=== PATIENT | female | born 1995 | race African-American/Black ===

== ENCOUNTER 2017-05-09 07:50 | Day surgery (SDC) | payer OTHER ==
[~2017-05-09] VITALS: Ht 157.5 cm; Wt 81.7 kg
[~2017-05-09 07:50] MED LIST: ADVIL200 M1 PO; FLONASE ALLERG9.9 ML
--- NOTE | 2017-05-09 10:52 | NUR ---
05/09/17 1052 Cristi Kay [address] PLACED BY ANESTHESIA AT BEDSIDE
--- NOTE | 2017-05-09 12:59 | NUR ---
PT CALL LIGHT ON, THIS RN RESPONDED. PT REQEUSTS TISSUES AND A BAG "TO SPIT IN." EMISIS BAG PROVIDED. PT REQEUSTS HER PHONE AND THE LIGHTS OFF SO SHE CAN NAP. REQUESTS PROVIDED. PT HAS NO OTHER REQUSTS AT THIS TIME. BED RAILS UP. CALL LIGHT WITHIN REACH.
--- NOTE | 2017-05-09 14:25 | NUR ---
1140: PATIENT BACK IN DAY SURGERY ROOM FROM PACU. C/O PAIN 12/14. DECLINES SOMETHING TO EAT AT THIS TIME. GIVEN ICE WATER AND HOT CHOCOLATE PER PATIENT REQUEST. IV SITE WNL. NASAL PACKING IN PLACE. HOB ELEVATED. SCDs ON. CALL LIGHT WITHIN REACH.
[2017-05-09] MEDS ORDERED: NORCO 5-325 TA1 EACH PO (14:59)
--- NOTE | 2017-05-09 15:39 | NUR ---
1520: PATIENT ASSISTED OOB AND TO BATHROOM. GAIT STEADY. VOID WITHOUT DIFFICULTY. GAIT STEADY BACK TO ROOM. IV DC'D WNL. DRESSING APPLIED. DISCHARGE INSTRUCTIONS GIVEN TO PATIENT.
--- NOTE | 2017-05-09 16:08 | NUR ---
1550: PATIENT DISCHARGED TO HOME WITH DAD VIA WHEELCHAIR.
--- NOTE | 2017-06-06 15:11 | OR ---
[facility] [address], [place] [address] Signed DATE OF PROCEDURE: 05/09/17 PREOPERATIVE DIAGNOSES Septal deformity, inferior turbinate hypertrophy, and chronic ethmoid sinusitis. POSTOPERATIVE DIAGNOSES Septal deformity, inferior turbinate hypertrophy, and chronic ethmoid sinusitis. PROCEDURE Bilateral intranasal ethmoidectomy, septoplasty, cautery of bilateral inferior turbinates. SURGEON: Gopi Avila M.D. ANESTHESIA: General LMA, Lisa Mccallum CRNA. PREOP HISTORY Shakira is a 21-year-old young lady with chronic sinus infections, nasal obstruction due to septal deformity and inferior turbinate hypertrophy. CAT scan of her sinuses has shown bilateral ethmoid maxillary sinus opacification and she is taken to the operating for the above-mentioned procedures. OPERATIVE PROCEDURE AND FINDINGS After informed consent, the patient was taken to the operating room, placed in supine position where general LMA anesthesia was induced. The patient received preoperative intranasal oxymetazoline, intravenous Clindamycin (due to a Cephalosporin allergy). Preop CT was viewed throughout. Headlight speculum exam of the nasal cavity showed septal deformity on the left side, partially obstructing visualization of the middle turbinate and middle meatus. Septal deformity was corrected with excising septal bone cartilage with Bala and the septum deformity was corrected in this manner allowing access to the middle meatus. Left ethmoid sinuses were approached with a speculum and headlight. The middle turbinate was medialized. Ethmoid bulla was taken down with the Bala. Anterior ethmoid air cells were opened. There was mucoid polypoid mucosa present. No purulence. After all of the affected sinuses were open, a middle meatal antrostomy was made with a curved ring curette, widened with the Bala. Minimal bleeding. A Garcia Kofi coated with Neosporin was placed in the middle meatus. Specimen was sent to pathology. Right ethmoid sinuses and maxillary sinuses were treated in the same manner. Packing was placed. Inferior turbinates were then cauterized with a long handle needle point cautery starting on the left, multiple transmucosal passes starting anteriorly on the medial and Electronically Signed By: GOPI AVILA MD 06/06/17 1511 PATIENT NAME: NJ DIEZ OPERATIVE REPORT DATE OF : [birth year] PHYSICIAN: GOPI AVILA MD REPORT #: [id number] REPORT IS CONFIDENTIAL AND NOT TO BE RELEASED WITHOUT AUTHORIZATION [facility] [address], [place] [address] Signed inferior surface of the inferior turbinate extending all the way back posteriorly. Excellent shrinkage in the size of the turbinate was obtained. Trimmed Merocel pack was placed coated with Neosporin. Same procedure on the right inferior turbinate. Merocel pack placed, tied anteriorly over a pad. Pharynx was suctioned clear of blood and secretions. Hemostasis was verified. The patient was then awakened, extubated, transported to recovery room in good condition. No complications. Blood loss minimal. Specimen to pathology, sinus contents left and right separately. Packing, 2 pieces of Merocel each nostril. No drains. No complications. Gopi Avila MD GC/Modl /[id number] cc: Darell Barrett MD Electronically Signed By: GOPI AVILA MD 06/06/17 1511 PATIENT NAME: GREER DIEZINDERHolland SIMON OPERATIVE REPORT DATE OF : [birth year] PHYSICIAN: GOPI AVILA MD REPORT #: [id number] REPORT IS CONFIDENTIAL AND NOT TO BE RELEASED WITHOUT AUTHORIZATION
== END 2017-05-09 15:50 | disposition home or self-care (01) ==
LOC: OPS 07:50 → DS 07:50 → OPS 10:00
PROVIDERS: Otolaryngology
PROC: 09BU4ZZ Excision of Right Ethmoid Sinus, Percutaneous Endoscopic Approach (ICD-10-PCS; 2017-05-09)
PROC: 09SM0ZZ Reposition Nasal Septum, Open Approach (ICD-10-PCS; 2017-05-09)
PROC: 095L0ZZ Destruction of Nasal Turbinate, Open Approach (ICD-10-PCS; 2017-05-09)
PROC: 09BV4ZZ Excision of Left Ethmoid Sinus, Percutaneous Endoscopic Approach (ICD-10-PCS; principal; 2017-05-09 10:00)
DX: J34.2 Deviated nasal septum (principal); J34.3 Hypertrophy of nasal turbinates; J32.2 Chronic ethmoidal sinusitis; Z88.8 Allergy status to other drugs, medicaments and biological substances
CPT/HCPCS: 00160; J1100; J1170; J2250; J2405; J2704; J3010; J7120

== ENCOUNTER 2021-07-17 03:34 | Emergency (ER) | payer SELFPAY ==
[~2021-07-17] VITALS: Ht 157.5 cm; Wt 86.2 kg
[~2021-07-17 03:34] MED LIST changes: +NORCO 5-325 TA1 EACH PO
[2021-07-17] MEDS ORDERED: SERTRALINE HCL100 MG PO (03:47)
--- NOTE | 2021-07-17 20:40 | EKG ---
[facility] [address] [facility] [place], [place] [address] Signed Normal sinus rhythm Normal ECG No previous ECGs available Confirmed by JETT TOWNSEND DO ([id number]) on 07/17/2021 8:40:11 PM Electronically Signed By: JETT TOWNSEND DO 07/17/212039 PATIENT NAME: NJ SUMMERS Electrocardiogram DATE OF : [birth year] PHYSICIAN: JETT TOWNSEND DO REPORT #: [id number] REPORT IS CONFIDENTIAL AND NOT TO BE RELEASED WITHOUT AUTHORIZATION
--- NOTE | 2021-07-17 20:45 | EKG ---
[facility] [address] [facility] [place], [place] [address] Signed Sinus tachycardia Rightward axis Borderline ECG Confirmed by JETT TOWNSEND DO ([id number]) on 07/17/2021 8:45:15 PM Electronically Signed By: JETT TOWNSEND DO 07/17/212044 PATIENT NAME: NJ SUMMERS Electrocardiogram DATE OF : [birth year] PHYSICIAN: JETT TOWNSEND DO REPORT #: [id number] REPORT IS CONFIDENTIAL AND NOT TO BE RELEASED WITHOUT AUTHORIZATION
== END 2021-07-17 08:43 | disposition home or self-care (01) ==
LOC: ED 03:34
DX: T43.221A Poisoning by selective serotonin reuptake inhibitors, accidental (unintentional), initial encounter (principal); Z88.1 Allergy status to other antibiotic agents; Z79.899 Other long term (current) drug therapy
CPT/HCPCS: 80053; 81001; 83735; 84443; 84703; 85025; 93005; 93010; 96374; 99285-25; G0480; J2405

== ENCOUNTER 2025-06-19 14:48 | Inpatient (IN) | payer OTHER ==
[~2025-06-19] VITALS: Ht 157.5 cm; Wt 82.6 kg
[~2025-06-19 14:48] MED LIST changes: +REGLAN10 MG PO; +SERTRALINE HCL100 MG PO
[2025-07-02] MEDS ORDERED: LACTATED RINGER'S 1,000 ML IV PRN (05:30)
[2025-07-02 06:01] LABS: MCH 28.4 PG (25.6-32.2); MCHC 32.7 g/dL (32.2-35.5); MCV 86.9 fL (79.4-94.8); RBC 4.19 M/uL (3.93-5.22)
[2025-07-02 06:41] LABS: ABO O; ANTIBODY SCREEN NEGATIVE; RH POSITIVE
[2025-07-02 06:55] VITALS: BP 109/56
[2025-07-02] MEDS ORDERED: CEFAZOLIN SODIUM 2 GM in SODIUM CHLORIDE 0.9% 100 ML IV SCH (07:00)
[2025-07-02] MEDS ORDERED: LIDOCAINE HCL 2% 5 ML SDV ONE (07:15)
[2025-07-02] MEDS ORDERED: BUPIVACAINE 0.75% IN DEXTROSE 2 ML AMP ONE (07:15)
[2025-07-02] MEDS ORDERED: fentaNYL citrate 100 MCG/2 ML VIAL ONE (07:17)
[2025-07-02] MEDS ORDERED: DEXAMETHASONE SOD PHOS 4 MG/ML VIAL ONE ×2 (07:20→08:47)
[2025-07-02] MEDS ORDERED: KETOROLAC TROMETHAMINE 30 MG/ML VIAL ONE (07:20)
[2025-07-02] MEDS ORDERED: NALOXONE HCL 0.4 MG SYR IV PRN ×2 (07:30)
[2025-07-02] MEDS ORDERED: MORPHINE SULFATE 4 MG/ML VIAL IV PRN (07:30)
[2025-07-02] MEDS ORDERED: HYDROmorphone HCL 1 MG/ML SYR IV PRN (07:30)
[2025-07-02] MEDS ORDERED: IBLOOD GLUCOSE TEST STRIP 1 EA TEST VI PRN (07:30)
[2025-07-02] MEDS ORDERED: KETOROLAC TROMETHAMINE 30 MG/ML VIAL IV PRN (07:30)
[2025-07-02] MEDS ORDERED: fentaNYL citrate 50 MCG/ML SDV IV PRN (07:30)
[2025-07-02] MEDS ORDERED: OXYTOCIN/0.9 % SODIUM CHLORIDE 500 ML IV ONE (07:31)
[2025-07-02] MEDS ORDERED: ACETAMINOPHEN 1,000 MG/100 ML VIAL ONE (08:20)
[2025-07-02 08:40] LABS: AMPHETAMINES, URINE NEGATIVE (NEGATIVE); BARBITURATES, URINE NEGATIVE (NEGATIVE); BENZODIAZEPINE, URINE NEGATIVE (NEGATIVE); CANNABINOID, URINE POSITIVE (NEGATIVE); COCAINE, URINE NEGATIVE (NEGATIVE); ECSTASY, URINE NEGATIVE (NEGATIVE); FENTANYL, URINE NEGATIVE (NEGATIVE); METHADONE, URINE NEGATIVE (NEGATIVE); OPIATES, URINE NEGATIVE (NEGATIVE); OXYCODONE, URINE NEGATIVE (NEGATIVE); PHENCYCLIDINE, URINE NEGATIVE (NEGATIVE)
[2025-07-02] MEDS ORDERED: SODIUM CHLORIDE 0.9% 60 ML IV ONE (08:45)
[2025-07-02] MEDS ORDERED: Ropivacaine HCl 0.5% 30 ML VIAL ONE (08:45)
--- NOTE | 2025-07-02 09:40 | NUR ---
07/02/25 0940 Ciara Ibarra 0931-PATIENT ARRIVED TO [facility] ROOM 103 FOR RECOVERY. PATIENT AWAKE DENIES PAIN OR NAUSEA. SPINAL AT T10. RA 98% RR EVEN. SR HR 60-70'S. FUNDUS FIRM AT UMBILICUS LIGHT RUBRA DRAINAGE TO REED PAD. GOMEZ CATHETER DRAINING YELLOW URINE. IV TO LEFT HAND INFUSING LR WITH PITOCIN CDI. DAD AT BEDSIDE HOLDING BABY, 0935-HOB SLIGHTLY ELEVATED TO FEED BABY TO BREAST. 0940-PATIENT FEEDING BABY TO BREAST DENIES PAIN OR NAUSEA. RA 98% RR EVEN
[2025-07-02 09:58] VITALS: BP 109/61
[2025-07-02] MEDS ORDERED: PROMETHAZINE HCL 25 MG TAB PO PRN (12:45)
[2025-07-02] MEDS ORDERED: OXYCODONE HCL 5 MG TAB PO PRN (12:45)
[2025-07-02] MEDS ORDERED: METOCLOPRAMIDE HCL 10 MG/2 ML SDV IV PRN (12:45)
[2025-07-02] MEDS ORDERED: OXYTOCIN/0.9 % SODIUM CHLORIDE 500 ML IV SCH (12:45)
[2025-07-02] MEDS ORDERED: OXYCODONE/APAP 5/325 TAB PO PRN (12:45)
[2025-07-02] MEDS ORDERED: PROMETHAZINE HCL 25 MG SUPP PR PRN (12:45)
[2025-07-02] MEDS ORDERED: PROCHLORPERAZINE EDISYLATE 10 MG/2 ML VIAL IV PRN (12:45)
[2025-07-02] MEDS ORDERED: HYDROCODONE/ACETA 5/325 TAB PO PRN (12:45)
[2025-07-02] MEDS ORDERED: LACTATED RINGER'S 1,000 ML IV SCH (12:50)
[2025-07-02] MEDS ORDERED: KETOROLAC TROMETHAMINE 30 MG/ML VIAL IV SCH (14:00)
[2025-07-02] MEDS ORDERED: ACETAMINOPHEN 325 MG TAB PO PRN (15:45)
[2025-07-02] MEDS ORDERED: SIMETHICONE 80 MG CHEW PO SCH (16:00)
[2025-07-02] MEDS ORDERED: ENOXAPARIN SODIUM 40 MG/0.4 ML SYR SUB-Q SCH (18:00)
[2025-07-02] MEDS ORDERED: SENNOSIDES/DOCUSATE 1 EA TAB PO SCH (21:00)
[2025-07-03] MEDS ORDERED: IBUPROFEN 600 MG TAB PO SCH (02:00)
[2025-07-03] MEDS ORDERED: LACTATED RINGER'S 1,000 ML IV SCH (05:00)
[2025-07-03 05:39] LABS: MCH 28.5 PG (25.6-32.2); MCHC 32.6 g/dL (32.2-35.5); MCV 87.6 fL (79.4-94.8); RBC 3.47 M/uL (3.93-5.22)
--- NOTE | 2025-07-03 09:17 | PR ---
[facility] [address] [facility] [place], [place] [address] Signed PP Progress Notes Datetime Report Generated by CPN: 07/03/2025 09:17 SUBJECTIVE: [id number] Pain: Within Normal Limits Bowel Movement: No Vital Signs: [id number] Vital Signs: Reviewed; Within Normal Limits EXAM: Ongoing EXAM: Ongoing Cardiovascular: Normal Respiratory: Normal Abdomen/Uterus: Normal Lochia: Normal Vulva/Perineum: Not Done Breasts: Not Done CVA Tenderness: Normal Extremities: Normal Incision: Normal Progress: Normal Exam Comments: Fundus firm U-2 nontender. Incision bandaged and dry. IMPRESSION/PLAN/PROCEDURES: [id number] Impression: Normal Progression Plan: Continue Present Management Progress Notes: Pt seen and examined. Doing well. Ambulating, voiding, and tolerating full diet. Pain and lochia minimal. well. No fever/chills or other concern. Anticipate d/c home tomorrow. Signing Physician: Camilo Concepcion DO Copies: ~ *Electronically Signed* 07/03/25 0917 CAMILO CONCEPCION (MARIBEL) DO PATIENT NAME: DIEZNJ SEVERINO PROGRESS NOTE DATE OF : [birth year] PHYSICIAN: CAMILO CONCEPCION (MARIBEL) DO RPT #: [id number] REPORT IS CONFIDENTIAL AND NOT TO BE RELEASED WITHOUT AUTHORIZATION
--- NOTE | 2025-07-04 09:11 | PR ---
[facility] [address] [facility] [place], [place] [address] Signed PP Progress Notes Datetime Report Generated by CPN: 07/04/2025 09:11 Pain: Within Normal Limits Nausea/Vomiting: Denies Flatus: Yes Bowel Movement: Yes Vital Signs: Reviewed; Within Normal Limits EXAM: Ongoing Cardiovascular: Normal Respiratory: Normal Abdomen/Uterus: Normal Lochia: Normal Vulva/Perineum: Not Done Breasts: Not Done CVA Tenderness: Normal Extremities: Normal Incision: Normal Progress: Normal Exam Comments: Fundus firm U-2 nontender. Impression: Normal Progression Plan: Remove [place]; Discharge Progress Notes: Pt seen and examined. Doing well. Ambulating, voiding, and tolerating full diet. Pain and lochia minimal. well. Incision healing well. No fver/chills or other concerns. Desires d/c home. Planning Kourtney for pp contraception. Reviewed d/c instructions. All questions answered. F/U 2 wks Signing Physician: Camilo Concepcion DO Copies: ~ *Electronically Signed* 07/04/25 0911 CAMILO CONCEPCION (MARIBEL) DO PATIENT NAME: NJ DIEZ PROGRESS NOTE DATE OF : [birth year] PHYSICIAN: CAMILO CONCEPCION) DO RPT #: [id number] REPORT IS CONFIDENTIAL AND NOT TO BE RELEASED WITHOUT AUTHORIZATION
[2025-07-04] MEDS ORDERED: ONDANSETRON 4 MG TAB ODT SL PRN (09:45)
== END 2025-07-04 18:42 | disposition home or self-care (01) | DRG 787 ==
LOC: FBC 07-02 05:15
PROVIDERS: ADMIT Obstetrics & Gynecology; ATTEND Obstetrics & Gynecology
PROC: 3E03329 Introduction of Other Anti-infective into Peripheral Vein, Percutaneous Approach (ICD-10-PCS; 2025-07-02)
PROC: 10D00Z1 Extraction of Products of Conception, Low, Open Approach (ICD-10-PCS; principal; 2025-07-02 07:30)
DX: O34.211 Maternal care for low transverse scar from previous cesarean delivery (principal); O99.324 Drug use complicating childbirth; F12.90 Cannabis use, unspecified, uncomplicated; O77.0 Labor and delivery complicated by meconium in amniotic fluid; O69.81X0 Labor and delivery complicated by cord around neck, without compression, not applicable or unspecified; O99.344 Other mental disorders complicating childbirth; F41.9 Anxiety disorder, unspecified; F32.A Depression, unspecified; Z37.0 Single live birth; Z3A.39 39 weeks gestation of pregnancy
CPT/HCPCS: 01961; 36415; 80307; 85027; 86850; 86900; 86901; A9270; J0131; J0688; J1100; J1650; J1885; J2003; J2405; J2795; J3010